=== PATIENT | female | born 1960 | race Caucasian/White ===

== ENCOUNTER 2016-08-14 11:07 | Emergency (ER) | payer OTHER ==
[2016-08-14 11:22] VITALS: TEMP 97.7
[2016-08-14] MEDS ORDERED: ONDANSETRON 4 MG/2 ML VIAL ONE (11:29)
[2016-08-14] MEDS ORDERED: ONDANSETRON 4 MG/2 ML VIAL IVP ONE (11:34)
[2016-08-14] MEDS ORDERED: NS 1,000 ML IV ONE ×2 (11:34→11:42)
--- NOTE | 2016-08-14 11:37 | UCPHY ---
H & P Patient Type: New Chief Complaint Nursing Narrative: pt reports N/V/D since 8pm last night. unable to keep fluids down " feels dehydrated". also reports DHALIWAL HPI/ROS: HPI CHIEF COMPLAINT: Nausea, vomiting, migraine headache HISTORY OF PRESENT ILLNESS: this patient very pleasant 56-year-old female, she presents to the urgent care by private vehicle and she states around 8:00 p.m. last night she ate a calzone she immediately became sick with nausea vomiting and loose stools. This has since resolved however due to ongoing nausea vomiting to around 2 a.m. with dry heaving she developed what she thinks is a migraine headache. She tells me she suffers from migraine headaches and takes Imitrex shots. She is out here visiting her daughter in taking care of their from [facility]. She states that she has a frontal throbbing headache is 6/10. She denies any focal weakness numbness or tingling. She does endorse some nausea and photosensitivity. She tells me this is exactly like her previous migraine headaches. She tells me she has had previous imaging before. She does not want any imaging here in the Urgent Care. She is specifically requesting IV fluids nausea medicine and Imitrex injection that usually works very well for her migraine headache. She tells me she gets headaches exactly like this with her migraines. She believes her current headache is a migraine precipitated by nausea vomiting from possibly food/calzone. she does tell me her abdomen abdomen is feeling better she is not having severe abdominal pain or abdominal cramping. No fever. No neck pain no meningeal signs. Past Medical History: Migraine headaches Past Surgical History: breast augmentation, , tonsillectomy Social History: denies daily use drugs alcohol tobacco products, lives in [facility] Family History: noncontributory ROS REVIEW OF SYSTEMS: A comprehensive 10 point review of systems is otherwise negative aside from elements mentioned in the history of present illness. Exam Constitutional photophobia, otherwise nontoxic appearing , triage nursing summary reviewed, vital signs reviewed, awake/alert. Eyes normal conjunctivae and sclera, EOMI, PERRLA. HENT head/neck; no meningeal signs, normal inspection, atraumatic, moist mucus membranes, no epistaxis, neck supple/ no meningismus, no raccoon eyes. Respiratory clear to auscultation bilaterally, normal breath sounds, no respiratory distress, no wheezing. Cardiovascular rate normal, regular rhythm, no murmur, no edema, distal pulses normal. Gastrointestinal soft, non-tender, no rebound, no guarding, normal bowel sounds, no distension, no pulsatile mass. Genitourinary no CVA tenderness. Musculoskeletal no midline vertebral tenderness, full range of motion, no calf swelling, no tenderness of extremities, no meningismus, good pulses, neurovascularly intact. Skin pink, warm, & dry, no rash, skin atraumatic. Neurologic this patient is a normal neurological exam, specifically is no focal neuro deficit, no weakness, no numbness and tingling, awake, alert and oriented x 3, AAOx3, moves all 4 extremities equally, motor intact, sensory intact, CN II-XII intact, normal cerebellar, normal vision, normal speech. Psychiatric normal mood/affect. Heme/Lymph/Immune no lymphadenopathy. Differential Diagnosis: includes but is not limited to in a particular order dehydration, ongoing nausea due to for food-borne illness, ongoing nausea due to migraine headache, migraine headache, doubt intracranial bleed given history of migraine headaches with similar feeling, and a nonfocal neurological exam Medical Decision Making: this patient had an IV established receive IV fluids to hydrate her, IV Zofran for nausea and at her request subcutaneous Imitrex. Will re-evaluate her however at this time she appears well nontoxic has a benign neurological exam. Most likely does have a precipitated migraine headache from nausea vomiting from food-borne illness earlier in the evening. Re-evaluation: 1303: 1 re-examination at this time this patient feels much better she is requesting to be discharged. She no longer has a headache she does not feel nauseous, I offered her more fluids more medication or if she has declined would like to go home. I will prescribe her Zofran She does understand if she develops any worsening symptoms including worsening headache, vomiting she should return to the urgent care or emergency room. She is agreeable with this plan. At this time her neurological exam is unremarkable she appears well nontoxic no focal neuro deficit. Headache resolved. Source: Patient - Personal History Current Tetanus Diphtheria and Acellular Pertussis (TDAP): Unsure - Medical/Surgical History Hx Asthma: No Hx Chronic Respiratory Disease: No Hx Diabetes: No Hx Cardiac Disease: No Hx Renal Disease: No Hx Cirrhosis: No Hx Alcoholism: No Hx HIV/AIDS: No Hx Splenectomy or Spleen Trauma: No Other PMH: kidney stones, migraines - Family History Significant Family History: No pertinent family hx - Social History Smoking Status: Never smoked Constitutional: Initial Vital Signs Temperature (C) 36.5 C 08/14/16 11:18 Heart Rate 100 08/14/16 11:18 Respiratory Rate 16 08/14/16 11:18 Blood Pressure 126/80 H 08/14/16 11:18 O2 Sat (%) 95 08/14/16 11:18 O2 Delivery Mode Room Air Allergies/Adverse Reactions: No Known Allergies Allergy (Unverified 08/14/16 11:21) Home Medications: Medication Instructions Recorded Imitrex 08/14/16 Ondansetron HCl [Zofran] 4 mg PO Q4-6PRN PRN #10 tablet 08/14/16 Prozac 10 MG (*) 08/14/16 Medical Decision Making - Data Points Medications Given: Discontinued Medications Sodium Chloride (Ns) 1,000 mls @ 0 mls/hr IV ONCE ONE PRN Reason: Wide Open Stop: 08/14/16 11:35 Last Admin: 08/14/16 11:35 Dose: 1,000 mls Sodium Chloride (Ns) 1,000 mls @ 0 mls/hr IV ONCE ONE PRN Reason: Wide Open Stop: 08/14/16 11:43 Last Admin: 08/14/16 12:20 Dose: 1,000 mls Ondansetron HCl (Zofran) 4 mg IVP EDNOW ONE Stop: 08/14/16 11:35 Last Admin: 08/14/16 11:35 Dose: 4 mg Sumatriptan Succinate (Imitrex Sc Injection) 6 mg SC EDNOW ONE Stop: 08/14/16 11:43 Last Admin: 08/14/16 11:52 Dose: 6 mg Departure - Departure Disposition: Home, Routine, Self-Care Clinical Impression: Nausea and vomiting Qualifiers: Vomiting type: unspecified Vomiting Intractability: non-intractable Qualified Code(s): R11.2 - Nausea with vomiting, unspecified Migraine headache Qualifiers: Migraine type: unspecified Status migrainosus presence: without status migrainosus Intractability: not intractable Qualified Code(s): G43.909 - Migraine, unspecified, not intractable, without status migrainosus Condition: Good Instructions: Migraine Headache (ED), Acute Nausea and Vomiting (ED) Additional Instructions: 1. stay well-hydrated. 2. Return to the urgent care or emergency room if develops any worsening symptoms includes severe headache, fever, vomiting. Prescriptions: Ondansetron HCl [Zofran] 4 mg PO Q4-6PRN PRN #10 tablet PRN Reason: Nausea/Vomiting, Use 1st - PQRS PQRS Measurement: n/a
[2016-08-14] MEDS ORDERED: SUMAtriptan 6 MG/0.5 ML VIAL SC ONE (11:42)
[2016-08-14 13:04] VITALS: BP 113/78; PULSE 102; RESP 18; O2SAT 94
== END 2016-08-14 13:14 | disposition home or self-care (01) ==
LOC: CED 11:07
DX: R11.2 Nausea with vomiting, unspecified (principal); G43.909 Migraine, unspecified, not intractable, without status migrainosus; Z87.442 Personal history of urinary calculi
CPT/HCPCS: 96361-PO; 96372-PO; 96374-PO; 99204-PO; G0463-PO; J2405; J3030